=== PATIENT | male | born 1970 ===

== ENCOUNTER 2022-04-14 12:37 | Outpatient (REF) | payer MEDICAID, SELFPAY ==
[2022-04-14 11:24] LABS: Abs Immature Grans 0.04 10^3/uL (0.0-0.06); Absolute Basophil Count 0.07 10^3/uL (0.0-0.2); Absolute Eosinophil Count 0.19 10^3/uL (0.0-0.7); Absolute Lymphocyte Count 2.73 10^3/uL (1.2-3.4); Absolute Monocyte Count 0.63 10^3/uL (0.1-0.8); Basophils % 0.8; Eosinophils % 2.2; HCT 44.4 % (40.0-50.0); HGB 14.7 g/dL (13.5-17.5); Immature Grans % 0.5; Lymphocytes % 31.9; MCH 30.7 pg (27.0-33.0); MCHC 33.1 % (32.0-36.0); MCV 93 fL (80-95); MPV 9.6 fL (8.0-11.0); Monocytes % 7.4; Neutrophils % 57.2; RBC 4.79 10^6/uL (4.36-5.78); RDW 12.4 % (11.8-14.1); RDW-SD 42.3 fL; WBC 8.56 10^3/uL (4.4-10.8)
[2022-04-14 11:37] LABS: Prothrombin Time 10.3 sec (9.3-11.0)
[2022-04-14 11:52] LABS: Diff Comment Agrees w/ Instrument; Platelet Count 282 10^3/uL (130-400); RBC Morphology Normal
[2022-04-14 12:02] LABS: ALT 17 U/L (16-63); AST 18 U/L (15-37); Albumin 3.6 g/dL (3.4-5.0); Alkaline Phosphatase 124 U/L (46-116); Anion Gap 9.3 mmol/L (3-11); BUN 18 mg/dL (7-18); Bilirubin, Total 0.4 mg/dL (0.2-1.0); CO2 25.7 mmol/L (21.0-32.0); CREATININE 1.1 mg/dL (0.70-1.30); Calcium 9.4 mg/dL (8.5-10.1); Chloride 103 mmol/L (98-107); Estimated GFR 80.27 (mL/min/1.73m2); Glucose 100 mg/dL (74-106); Potassium 4.5 mmol/L (3.5-5.1); Sodium 138 mmol/L (136-145); Total Protein 7.7 g/dL (6.4-8.2)
[2022-04-14 23:02] LABS: Rheumatoid Factor <8.6 IU/mL (<12.0)
[2022-04-15 08:30] LABS: Cyclic Citrullinated Peptide <2.5 U/mL (<5.0)
[2022-04-15 14:49] LABS: ANA Interpretation Positive (Negative); ANA Titer Pattern 1:640 Speckled
== END 2022-04-14 12:38 | disposition home or self-care (01) ==
LOC: LBN 12:37
PROVIDERS: Visit Provider Student in an Organized Health Care Education/Training Program
DX: J84.89 Other specified interstitial pulmonary diseases (principal)
CPT/HCPCS: 80053; 86200; 85025; 85610; 86038; 86431

== ENCOUNTER 2024-07-05 15:53 | Outpatient (REF) | payer MEDICAID, SELFPAY ==
[2024-07-05 16:07] LABS: Abs Immature Grans 0.02 10^3/uL (0.0-0.06); Absolute Basophil Count 0.04 10^3/uL (0.0-0.2); Absolute Eosinophil Count 0.16 10^3/uL (0.0-0.7); Absolute Lymphocyte Count 3.26 10^3/uL (1.2-3.4); Absolute Monocyte Count 0.72 10^3/uL (0.1-0.8); Absolute Neutrophil Count 4.73 10^3/uL (1.2-6.7); Basophils % 0.4 %; Eosinophils % 1.8 %; HCT 45.7 % (40.0-50.0); Immature Grans % 0.2 %; Lymphocytes % 36.5 %; MCHC 32.8 % (32.0-36.0); MCV 94 fL (80-95); Monocytes % 8.1 %; Platelet Count 302 10^3/uL (130-400); RBC 4.84 10^6/uL (4.36-5.78); RDW 12.9 % (11.8-14.1); RDW-SD 44.8 fL; WBC 8.93 10^3/uL (4.4-10.8)
[2024-07-05 16:10] LABS: Prothrombin Time 9.9 sec (9.1-11.1)
[2024-07-05 17:19] LABS: ALT 18 U/L (16-63); AST 12 U/L (15-37); Albumin 3.3 g/dL (3.4-5.0); Alkaline Phosphatase 153 U/L (46-116); Anion Gap 11.7 mmol/L (3-11); BUN 17 mg/dL (7-18); Bilirubin, Total 0.3 mg/dL (0.2-1.0); CO2 23.3 mmol/L (21.0-32.0); CREATININE 1.2 mg/dL (0.70-1.30); Calcium 8.8 mg/dL (8.5-10.1); Chloride 104 mmol/L (98-107); Estimated GFR 70.98 (mL/min/1.73m2); Glucose 129 mg/dL (74-106); Sodium 139 mmol/L (136-145); Total Protein 7.1 g/dL (6.4-8.2)
== END 2024-07-05 15:54 | disposition home or self-care (01) ==
LOC: LBN 15:53
PROVIDERS: Visit Provider Physician Assistant Surgical
DX: J84.112 Idiopathic pulmonary fibrosis (principal); R91.1 Solitary pulmonary nodule
CPT/HCPCS: 80053; 85025; 85610

== ENCOUNTER 2024-10-04 16:50 | Outpatient (REF) | payer MEDICAID, SELFPAY ==
[2024-10-04 14:32] LABS: Abs Immature Grans 0.01 10^3/uL (0.0-0.06); HCT 43.9 % (40.0-50.0); HGB 14.3 g/dL (13.5-17.5); Immature Grans % 0.1 %; MCH 30.3 pg (27.0-33.0); MCHC 32.6 % (32.0-36.0); MCV 93 fL (80-95); MPV 10.0 fL (8.0-11.0); Platelet Count 288 10^3/uL (130-400); RBC 4.72 10^6/uL (4.36-5.78); RDW 13.2 % (11.8-14.1); RDW-SD 45.1 fL; WBC 8.52 10^3/uL (4.4-10.8)
[2024-10-04 14:38] LABS: ALT 17 U/L (16-63); AST 15 U/L (15-37); Albumin 3.4 g/dL (3.4-5.0); Alkaline Phosphatase 142 U/L (46-116); Anion Gap 8.4 mmol/L (3-11); BUN 18 mg/dL (7-18); Bilirubin, Total 0.3 mg/dL (0.2-1.0); CO2 27.6 mmol/L (21.0-32.0); Calcium 9.2 mg/dL (8.5-10.1); Chloride 104 mmol/L (98-107); Estimated GFR 100.24 (mL/min/1.73m2); Glucose 94 mg/dL (74-106); Potassium 4.5 mmol/L (3.5-5.1); Sodium 140 mmol/L (136-145); Total Protein 7.2 g/dL (6.4-8.2)
== END 2024-10-04 16:51 | disposition home or self-care (01) ==
LOC: LBN 16:50
PROVIDERS: Visit Provider Physician Assistant Surgical
DX: J84.112 Idiopathic pulmonary fibrosis (principal)
CPT/HCPCS: 80053; 85025